=== PATIENT | female | born 1995 | race Caucasian/White ===

== ENCOUNTER 2019-12-25 14:59 | Outpatient (REF) | payer MEDICAID, SELFPAY ==
--- NOTE | 2019-12-25 14:30 | PAPFT_PTH ---
PATIENT: ARYA FRANCES LOC: [facility]#:[id number] AGE/SX: 24/F ROOM: RE12/25/[address]: Erlinda Joy : 1995 BED: DIS: 12/25/2019 SPEC #: [id number] RECD: 12/26/19 12:52 STATUS: FRANCISCO JAVIER REQ #: [id number] SAM: 12/25/19 14:[address]: Erlinda Joy DEPT: [facility] Cytology RECD BY: Zofia Nolasco ENTERED: 12/26/19 12:52 SP TYPE: PAPFT OTHR DR: Doyle Menard Tissues: 1 - CX/ENDOCX FOR PAP SMEARS Procedures: PAP THIN PREP/[facility] Screening Comments: [id number] (CHLAMYDIA/GC)
[2019-12-27 15:03] LABS: Chlamydia Result Negative (Negative); GC Result Negative (Negative)
== END 2019-12-25 15:19 ==
LOC: NCHCN 14:59
PROVIDERS: PCP Internal Medicine; Visit Provider Family Medicine
DX: Z11.3 Encounter for screening for infections with a predominantly sexual mode of transmission (principal); Z12.4 Encounter for screening for malignant neoplasm of cervix
CPT/HCPCS: 87491; 87591; 88142